=== PATIENT | female | born 1945 | race Caucasian/White ===

== ENCOUNTER 2018-09-15 17:59 | Emergency (ER) | payer MEDICARE, BC ==
--- OUTSIDE RECORDS SUMMARY | 2018-09-15 18:06 | XMS REPORT | Continuity of Care Document ---
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 Jenny Arredondo MD Primary Care Physician Unavailable Payers Date Identification Numbers Payment Provider Subscriber Policy Number: [id number] [employer] [place] Jessica Hahn PayID: [id number] [address] [place] [address] Policy Number: [id number] [facility] [place] Plan Jessica Hahn PayID: [id number] [address] [place] [address] Problems Active Problems Provider Date Essential hypertension William Yusuf MD Onset: 12/22/2016 Pure hypercholesterolemia William Yusuf MD Onset: 12/22/2016 Allergy status to other drugs, William Yusuf MD Onset: 07/08/2017 medicaments and biological substances status Mild intermittent asthma DAMIR Zarco Onset: 03/02/2017 Uncomplicated moderate persistent William Yusuf MD Onset: 12/22/2016 asthma Allergic rhinitis William Yusuf MD Onset: 12/22/2016 Allergic rhinitis due to pollen William Yusuf MD Onset: 12/22/2016 Social History Type Date Description Comments Sex Unknown Home Environment Has a window air conditioner Home Environment There is no basement Home Environment The floors are carpeted Home Environment Uses baseboard heating Smoke-Free Home is smoke-free Pets None Tobacco Use Start: Unknown Patient has never smoked Smoking Status Reviewed: 09/11/18 Patient has never smoked Allergies, Adverse Reactions, Alerts Active Allergies Reaction Severity Comments Date Sulfa Antibiotics 12/22/2016 Penicillin 12/22/2016 12/22/2016 Lisinopril 12/22/2016 Clindamycin 09/09/2017 Benzyl Alcohol 09/11/2018 Medications Active Medications SIG Qnty Indications Ordering Date Provider Qvar Redihaler inhale 1 puff 21.2gm [facility] 40mcg/Act by mouth twice MD Paramjit 9 Aerosol daily, use with spacer, rinse mouth after Flovent HFA inhale 2 puffs 12units [facility]estelita A. 110mcg/Act Aerosol two times daily MD Paramjit 8 Proair HFA 2 puffs every 4 8.500gm J30.1 [facility]estelita A. 108(90Base) mcg/Act as needed MD Paramjit 7 Aerosol Fluticasone Propionate 2 puffs each 16gm [facility]er A. nostril every MD Paramjit 0 50mcg/Act Suspension day Hydrochlorothiazide 1 tab PO daily Jenny Arredondo, 25mg MD 0 Tablets Lovastatin 1 tab PO daily Jenny Arredondo, 40mg Tablets MD 0 Synthroid 1 tab PO daily Jenny Arredondo, 137mcg Tablets MD 0 Vitamin D AprJenny thibodeaux, (Ergocalciferol) MD 0 [id number] Capsules Vitamin C 1 by mouth Unknown 500mg Tablets every day 0 Metronidazole Apply To Unknown 0.75% Cream Affected 0 Area(S) On Face Once Daily Regardless Of Active Rosacea Azithromycin Take 1 Tablet Unknown 500mg Tablets By Mouth 1 Hour 0 Prior To Procedure History Medications Elidel apply to facial 30gm Royaler A. 07/14/2017 - 1% Cream rash twice a day MD Paramjit 09/11/2018 as needed Clindamycin For supervised 200ml Z88.8 [facility] 07/08/2017 - Palmitate HCL oral challenge in MD Paramjit 09/09/2017 the office 75mg/5ML Solution Rec Eucrisa apply to affected 60gm Z88.8 William A. 07/08/2017 - 2% Ointment areas on face MD Paramjit 07/14/2017 twice a day as needed Flovent HFA 2 puffs twice a 12gm William Guerra. - day MD Paramjit 09/09/2017 110mcg/Act Aerosol Fluticasone Jenny Arredondo MD - Propionate 09/11/2018 50mcg/Act Suspension Vital Signs Date Vital Result Comment 09/11/2018 11:14am BP Systolic 130 mmHg BP Diastolic 70 mmHg Height 64 inches 5'4" Weight 206.00 lb BMI (Body Mass Index) 35.4 kg/m2 Heart Rate 82 /min Respiratory Rate 16 /min Body Temperature 97.7 F O2 % BldC Oximetry 91 % 03/13/2018 10:36am BP Systolic 149 mmHg BP Diastolic 77 mmHg Height 64 inches 5'4" Weight 203.00 lb BMI (Body Mass Index) 34.8 kg/m2 Heart Rate 83 /min Respiratory Rate 16 /min Body Temperature 98.0 F O2 % BldC Oximetry 97 % 09/09/2017 10:03am BP Systolic 122 mmHg BP Diastolic 72 mmHg Height 64 inches 5'4" Weight 214.00 lb BMI (Body Mass Index) 36.7 kg/m2 Heart Rate 76 /min Respiratory Rate 18 /min Body Temperature 97.5 F O2 % BldC Oximetry 93 % 07/08/2017 8:17am BP Systolic 115 mmHg BP Diastolic 78 mmHg Height 64 inches 5'4" Weight 215.00 lb BMI (Body Mass Index) 36.9 kg/m2 Heart Rate 90 /min Respiratory Rate 18 /min Body Temperature 97.0 F O2 % BldC Oximetry 97 % 03/02/2017 10:46am BP Systolic 140 mmHg BP Diastolic 88 mmHg Height 64 inches 5'4" Weight 214.00 lb BMI (Body Mass Index) 36.7 kg/m2 Heart Rate 77 /min Respiratory Rate 16 /min Body Temperature 97.4 F O2 % BldC Oximetry 99 % 01/19/2017 8:37am Height 64 inches 5'4" Weight 214.00 lb BMI (Body Mass Index) 36.7 kg/m2 Heart Rate 68 /min Respiratory Rate 14 /min Body Temperature 98.4 F O2 % BldC Oximetry 96 % 12/22/2016 9:36am Height 64 inches 5'4" Weight 216.00 lb BMI (Body Mass Index) 37.1 kg/m2 Heart Rate 77 /min Respiratory Rate 16 /min Body Temperature 96.4 F O2 % BldC Oximetry 96 % Results Test Date Facility Test Result H/L Range Note Order 09/11/2018 [facility] Nitric Oxide <pending> PFT Supplies <pending> PFT With Bronchodilator <pending> Procedures Date Code Description Status 09/11/2018 38750 Nitric Oxide Gas Determination Completed 09/11/2018 02959 Bronchodilation Responsiveness Spirometry Pre/Post Completed Bronchodil Adm 03/13/2018 69306 Nitric Oxide Gas Determination Completed 03/13/2018 59568 Nitric Oxide Gas Determination Completed 03/13/2018 94670 Bronchodilation Responsiveness Spirometry Pre/Post Completed Bronchodil Adm 03/13/2018 16135 Bronchodilation Responsiveness Spirometry Pre/Post Completed Bronchodil Adm 09/09/2017 20645 Nitric Oxide Gas Determination Completed 09/09/2017 73857 Nitric Oxide Gas Determination Completed 09/09/2017 55094 Bronchodilation Responsiveness Spirometry Pre/Post Completed Bronchodil Adm 09/09/2017 26149 Bronchodilation Responsiveness Spirometry Pre/Post Completed Bronchodil Adm 07/13/2017 42240 Ingestion Challenge Test Sequential & Incremental Completed 12/22/2016 45667 Nitric Oxide Gas Determination Completed 12/22/2016 66066 Allergy Tests Percutaneous W/ Allergenic Extracts Completed 12/22/2016 51849 Bronchodilation Responsiveness Spirometry Pre/Post Completed Bronchodil Adm Encounters Type Date Location Provider Dx Diagnosis Office Visit 09/11/2018 ANA Pacheco J45.40 Moderate persistent 10:30a asthma, uncomplicated J30.89 Other allergic rhinitis J30.1 Allergic rhinitis due to pollen Office Visit 03/13/2018 10:00a ANA Pacheco J45.40 Moderate persistent asthma, uncomplicated J30.89 Other allergic rhinitis J30.1 Allergic rhinitis due to pollen Office Visit 09/09/2017 9:30a Adithya Callahan NP J45.40 Moderate persistent asthma, uncomplicated J30.89 Other allergic rhinitis J45.20 Mild intermittent asthma, uncomplicated J30.1 Allergic rhinitis due to pollen Office Visit 07/13/2017 11:15a Adithya Burris Z88.8 Allergy status to jame Yusuf MD drug/meds/biol subst status Office Visit 07/08/2017 8:15a Adithya Burris Z88.8 Allergy status to jame Yusuf MD drug/meds/biol subst status Office Visit 03/02/2017 10:00a Adithya Merida J30.1 Allergic rhinitis due Fenst[place]acher, to pollen RPA-C J30.89 Other allergic rhinitis J45.20 Mild intermittent asthma, uncomplicated Office Visit 01/19/2017 8:30a Dwayne Gutierrez30.1 Allergic rhinitis due to pollen J30.89 Other allergic rhinitis J45.40 Moderate persistent asthma, uncomplicated Office Visit 12/22/2016 9:30a Dwayne Gutierrez30.1 Allergic rhinitis due to pollen J30.89 Other allergic rhinitis J45.40 Moderate persistent asthma, uncomplicated Plan of Treatment Future Appointment(s):12/06/2018 10:00 am - ANA Vizcaino at [place]
--- OUTSIDE RECORDS SUMMARY | 2018-09-15 18:06 | XMS REPORT | Continuity of Care Document ---
:1945 External Reference #:[id number] Author Name NavarroPati zaldivar Care Team Providers Name Role Phone Jenny Arredondo MD Care Team Information Cryptologic Support Specialist Unavailable Jenny Arredondo MD Primary Care Physician Unavailable Payers Date Identification Numbers Payment Provider Subscriber Policy Number: [id number] [place] Jessica Hahn PayID: [id number] [address] [place] [address] Policy Number: [id number] [facility] Plan Jessica Hahn PayID: [id number] [address] [place] [address] Problems Active Problems Provider Date Essential hypertension [...] Qvar Redihaler inhale 1 puff 21.2gm [facility]45.40 [facility] 40[facility]g/Act by mouth twice MD Paramjit 9 Aerosol daily, use with spacer, rinse mouth after Flovent HFA inhale 2 puffs 12units Christopher A. 110mcg/Act Aerosol two times daily MD Paramjit 8 Proair HFA 2 puffs every 4 8.500gm J30.1 [facility] 108(90Base) mcg/Act as needed MD Paramjit 7 Aerosol Fluticasone Propionate 2 puffs each 16gm [facility] nostril every MD Paramjit 0 50mcg/Act Suspension day Hydrochlorothiazide 1 tab PO daily Jenny Arredondo, 25mg MD 0 Tablets Lovastatin 1 tab PO daily Derekder Jenny, 40mg Tablets MD 0 Synthroid 1 tab PO daily Dick Arredondoia, 137mcg Tablets MD 0 Vitamin D Jenny Arredondo, (Ergocalciferol) MD 0 [id number] Capsules Vitamin C 1 by mouth Unknown 500mg Tablets every day 0 Metronidazole Apply To Unknown 0.75% Cream Affected 0 Area(S) On Face Once Daily Regardless Of Active Rosacea Azithromycin Take 1 Tablet Unknown 500mg Tablets By Mouth 1 Hour 0 Prior To Procedure History Medications Elidel apply to facial 30gm Christopher A. 07/14/2017 - 1% Cream rash twice a day MD Paramjit 09/11/2018 as needed Clindamycin For supervised 200ml Z88.8 [facility] 07/08/2017 - Palmitate HCL oral challenge in MD Paramjit 09/09/2017 the office 75mg/5ML Solution Rec Eucrisa apply to affected 60gm Z88.8 [facility] 07/08/2017 - 2% Ointment areas on face MD Paramjit 07/14/2017 twice a day as needed Flovent HFA 2 puffs twice a 12gm Christopher A. - day MD Paramjit 09/09/2017 110mcg/Act Aerosol [...] F O2 % BldC Oximetry 96 % Procedures Date Code Description Status 09/11/2018 32583 Nitric Oxide Gas Determination Completed 09/11/2018 14151 Nitric Oxide Gas Determination Completed 09/11/2018 06206 Bronchodilation Responsiveness Spirometry Pre/Post Completed Bronchodil Adm 09/11/2018 63159 Bronchodilation Responsiveness Spirometry Pre/Post Completed Bronchodil Adm 03/13/2018 22683 Nitric Oxide Gas Determination Completed 03/13/2018 42442 Nitric Oxide Gas Determination Completed 03/13/2018 17549 Bronchodilation Responsiveness Spirometry Pre/Post Completed Bronchodil Adm 03/13/2018 74164 Bronchodilation Responsiveness Spirometry Pre/Post Completed Bronchodil Adm 09/09/2017 10417 Nitric Oxide Gas Determination Completed 09/09/2017 21579 Nitric Oxide Gas Determination Completed 09/09/2017 96615 Bronchodilation Responsiveness Spirometry Pre/Post Completed Bronchodil Adm 09/09/2017 85769 Bronchodilation Responsiveness Spirometry Pre/Post Completed Bronchodil Adm 07/13/2017 96537 Ingestion Challenge Test Sequential & Incremental Completed 12/22/2016 07318 Nitric Oxide Gas Determination Completed 12/22/2016 83255 Allergy Tests Percutaneous W/ Allergenic Extracts Completed 12/22/2016 08576 Bronchodilation Responsiveness Spirometry Pre/Post Completed Bronchodil Adm [...] subst status Office Visit 07/08/2017 8:15a Adithya Taveras88.8 Allergy status to jame Yusuf MD drug/meds/biol subst status Office Visit 03/02/2017 10:00a [place] Shy Merida J30.1 Allergic rhinitis due Fenstermacher, to pollen RPA-C J30.89 Other allergic rhinitis J45.20 Mild intermittent asthma, uncomplicated Office Visit 01/19/2017 8:30a [place] William Yusuf J30.1 Allergic rhinitis due to pollen J30.89 Other allergic rhinitis J45.40 Moderate persistent asthma, uncomplicated Office Visit 12/22/2016 9:30a [place] William Yusuf J30.1 Allergic rhinitis due to pollen J30.89 Other allergic rhinitis J45.40 Moderate persistent asthma, uncomplicated Plan of Treatment Future Appointment(s):12/06/2018 10:00 am - [id number]/11/2018 - ANA VizcainoJ45.40 Moderate persistent asthma, uncomplicatedNew Medication: Qvar Redihaler 40 mcg/Act - inhale 1 puff by mouth twice daily, use with spacer , rinse mouth afterComments:Patient's PFT continues to show small airway asthma and exhaled nitric oxide is slightly elevated at31 ppm. Patient to continue Flovent for prophylaxis of her lungs and Pro Air for breakthrough chestsymptoms. Patient will also add Qvar 40, 1 puff once a day for additional prophylaxis of her lungs. Patient to continue Flonase for prophylaxis of her nose. Patient to follow-up with this office in 3 months for repeat PFT to to check effectiveness of Qvar 40.Patient given samples of Qvar 40 today.Follow up: 3 months, PFT and NIOX jhiflT51.89 Other allergic rvszphreV42.1 Allergic rhinitis due to pollen
[2018-09-15 18:31] VITALS: BP 137/80
--- NOTE | 2018-09-15 18:57 | UC ---
Throat Pain/Nasal [place] HPI - HPI Summary HPI Summary: 72-year-old woman comes in with a chief complaint of 4 days of shortness of breath and sputum production. She did start a new medicine Qvar 4 days ago. Symptoms seem to start the same time. Is also having fevers. Sputum is thick. She stopped taking the Qvar but without improvement. She used her albuterol inhaler but needed to take 3 puffs before she got any relief. No pedal edema no complaint of any chest pain. No history of CHF. - History of Current Complaint Chief Complaint: UCGeneralIllness Stated Complaint: COUGH Time Seen by Provider: 09/15/18 18:27 Hx Last Menstrual Period: post Pain Intensity: 2 - Allergies/Home Medications Allergies/Adverse Reactions: Allergies Allergy/AdvReac Type Severity Reaction Status Date / Time clindamycin Allergy Intermediate Rash Verified 09/15/18 18:34 lisinopril Allergy Intermediate Coughing Verified 09/15/18 18:34 Sulfa (Sulfonamide Allergy Intermediate Hives Verified 09/15/18 18:34 Antibiotics) Penicillins Allergy Fever Verified 09/15/18 18:34 Home Medications: Home Medications Fluticasone Propionate [Flovent Hfa] 1 puff INH BID 09/15/18 [History Confirmed 09/15/18] PMH/Surg Hx/FS Hx/Imm Hx Previously Healthy: Yes Endocrine History: Hypothyroidism, Dyslipidemia Cardiovascular History: Hypertension - Surgical History Surgical History: Yes Surgery Procedure, Year, and Place: LEFT KNEE 2015. bunion surgery - Family History Known Family History: Positive: Non-Contributory - Social History Alcohol Use: None Substance Use Type: None Smoking Status (MU): Former Smoker Review of Systems All Other Systems Reviewed And Are Negative: Yes Constitutional: Positive: Fever, Chills Skin: Positive: Negative Eyes: Positive: Negative ENT: Positive: Sinus Congestion Respiratory: Positive: Shortness Of Breath, Cough, Other - SEE HPI Cardiovascular: Positive: Negative Gastrointestinal: Positive: Negative Motor: Positive: Negative Neurovascular: Positive: Negative Musculoskeletal: Positive: Negative. Negative: Edema Neurological: Positive: Negative Psychological: Positive: Negative Is Patient Immunocompromised?: No Physical Exam Triage Information Reviewed: Yes Appearance: Well-Appearing, No Pain Distress, Well-Nourished Vital Signs: Initial Vital Signs Temp 100.7 F 09/15/18 18:20 Pulse 92 09/15/18 18:20 Resp 17 09/15/18 18:20 BP 137/80 09/15/18 18:20 Pulse Ox 94 09/15/18 18:20 Vital Signs Reviewed: Yes Eye Exam: Normal Eyes: Positive: Conjunctiva Clear ENT: Positive: Pharynx normal, TMs normal Neck: Positive: Supple, Nontender Respiratory: Positive: Lungs clear, Normal breath sounds, No respiratory distress Cardiovascular: Positive: RRR Musculoskeletal Exam: Normal Musculoskeletal: Positive: Strength Intact, ROM Intact Neurological: Positive: Alert, Muscle Tone Normal Psychological Exam: Normal Psychological: Positive: Age Appropriate Behavior Skin Exam: Normal Throat Pain/Nasal Course/Dx - Course Course Of Treatment: DISCUSSED VIRAL VERSES BACTERIAL INFECTION AND THE ROLE OF ANTIBIOTICS. THE PATIENT PREFERS TO BE ON ANTIBIOTICS AT THIS TIME. - Differential Dx/Diagnosis Provider Diagnosis: Bronchitis with bronchospasm Discharge - Sign-Out/Discharge Documenting (check all that apply): Patient Departure All imaging exams completed and their final reports reviewed: No Studies - Discharge Plan Condition: Stable Disposition: HOME Prescriptions: DOXYcycline CAP(*) [DOXYcycline 100MG CAP(*)] 100 mg PO BID #20 cap predniSONE TAB* [Deltasone 20 MG TAB*] 40 mg PO DAILY #10 tab Patient Education Materials: Acute Bronchitis (ED), Bronchospasm (ED) Referrals: Jenny Arredondo MD [Primary Care Provider] - Additional Instructions: FOLLOW UP WITH YOUR DOCTOR IF NOT COMPLETELY IMPROVED. GET RECHECKED SOONER IF YOUR CONDITION WORSENS OR ANY QUESTIONS OR CONCERNS. - Billing Disposition and Condition Condition: STABLE Disposition: Home
== END 2018-09-15 19:13 | disposition home or self-care (01) ==
LOC: UCEAST 17:59
DX: J40 Bronchitis, not specified as acute or chronic (principal); J98.01 Acute bronchospasm; I10 Essential (primary) hypertension; Z88.1 Allergy status to other antibiotic agents; Z88.8 Allergy status to other drugs, medicaments and biological substances; Z88.5 Allergy status to narcotic agent; Z88.0 Allergy status to penicillin; Z87.891 Personal history of nicotine dependence
CPT/HCPCS: 99211; G0463

== ENCOUNTER 2019-02-06 12:34 | Emergency (ER) | payer MEDICARE, BC ==
[2019-02-06 12:47] VITALS: BP 159/88
--- NOTE | 2019-02-06 13:12 | UC ---
Skin Complaint HPI - HPI Summary HPI Summary: 73-year-old female presents with complaints of a tick bite to her right forearm. Patient states she discovered the tick this morning while showering and that it is still attached. Denies fever, chills, rash, flulike symptoms, myalgias, joint pain or swelling. - History of Current Complaint Chief Complaint: UCSkin Time Seen by Provider: 02/06/19 13:10 Stated Complaint: TICK BITE Hx Obtained From: Patient Hx Last Menstrual Period: post Pain Intensity: 0 - Allergy/Home Medications Allergies/Adverse Reactions: Allergies Allergy/AdvReac Type Severity Reaction Status Date / Time clindamycin Allergy Intermediate Rash Verified 02/06/19 12:40 lisinopril Allergy Intermediate Coughing Verified 02/06/19 12:40 Sulfa (Sulfonamide Allergy Intermediate Hives Verified 02/06/19 12:40 Antibiotics) Penicillins Allergy Fever Verified 02/06/19 12:40 PMH/Surg Hx/FS Hx/Imm Hx Endocrine History: Thyroid Disease, Dyslipidemia Cardiovascular History: Hypertension - Surgical History Surgical History: Yes Surgery Procedure, Year, and Place: LEFT KNEE 2015. bunion surgery - Family History Known Family History: Positive: Non-Contributory - Social History Occupation: Retired Lives: With Family Alcohol Use: Weekly Substance Use Type: None Smoking Status (MU): Former Smoker Review of Systems All Other Systems Reviewed And Are Negative: Yes Constitutional: Negative: Fever, Chills Skin: Positive: Other - See HPI Respiratory: Positive: Negative Cardiovascular: Positive: Negative Gastrointestinal: Positive: Negative Genitourinary: Positive: Negative Musculoskeletal: Negative: Arthralgia, Myalgia Neurological: Positive: Negative Is Patient Immunocompromised?: No Physical Exam - Summary Physical Exam Summary: GENERAL APPEARANCE: Well developed, well nourished, alert and cooperative, and appears to be in no acute distress. CARDIAC: Normal S1 and S2. No S3, S4 or murmurs. Rhythm is regular. There is no peripheral edema, cyanosis or pallor. Extremities are warm and well perfused. Capillary refill is less than 2 seconds. Peripheral pulses intact. LUNGS: Clear to auscultation without rales, rhonchi, wheezing or diminished breath sounds. ABDOMEN: Positive bowel sounds. Soft, nondistended, nontender. No guarding or rebound. No masses or hepatosplenomegally. MUSKULOSKELETAL: ROM intact to all extremities. No joint erythema or tenderness. Normal muscular development. Normal gait. SKIN: Skin normal color, texture and turgor. Embedded non-engorged adult deer tick with mild localized erythema noted to the right forearm. Triage Information Reviewed: Yes Vital Signs: Initial Vital Signs Temp 97.8 F 02/06/19 12:42 Pulse 73 02/06/19 12:42 Resp 19 02/06/19 12:42 BP 159/88 02/06/19 12:42 Pulse Ox 99 02/06/19 12:42 Vital Signs Reviewed: Yes Course/Dx - Course Course Of Treatment: 73-year-old female presents with complaints of a tick bite to her right forearm. Patient states she discovered the tick this morning while showering and that it is still attached. Denies fever, chills, rash, flulike symptoms, myalgias, joint pain or swelling. Afebrile. Hypertensive otherwise vital signs stable. Patient had an embedded non-engorged adult deer tick with mild localized erythema noted to the right forearm. This was removed in its entirety using a tick twister. I discussed with the patient that since the tick was not engorged that it was likely attached for less than 24 hours and that there was a very small chance of any transmission of possible Lyme disease and recommended watchful waiting at this time. She is to follow-up with her primary care provider as needed. Anticipatory guidance and warning signs are reviewed with the patient. Verbalizes understanding and agrees with plan of care. - Differential Diagnoses - Skin Complaint Differential Diagnoses: Local Allergic Reaction, Tick Born Illness - Diagnoses Provider Diagnosis: Tick bite of right forearm Discharge ED - Sign-Out/Discharge Documenting (check all that apply): Patient Departure All imaging exams completed and their final reports reviewed: No Studies - Discharge Plan Condition: Stable Disposition: HOME Patient Education Materials: Tick Bite (ED) Referrals: Jenny Arredondo MD [Primary Care Provider] - Additional Instructions: Ticks transmit infection only after they have attached and then taken a blood meal from their new host. A tick that has not attached cannot not pass any infection. Since the deer tick that transmits Lyme disease typically feeds for more than 36 hours before transmitting the organisim that causes Lyme disease, the risk of acquiring Lyme disease from an tick bite is extremely small, even in an area where the disease is common. There is no benefit of blood testing for Lyme disease at the time of the tick bite because even people who become infected will not have a positive blood test until approximately two to six weeks after the tick bite. To try to avoid getting bitten by a tick, you can: * Wear shoes, long-sleeved shirts, and long pants when you go outside. Keep ticks away from your skin by tucking your pants into your socks. * Wear light colors so you can spot any ticks that get on your clothes. * Wear bug spray or cream that contains DEET. (Do not use DEET on babies younger than 2 months.) On your clothes and gear, you can use bug repellents that have a chemical called "permethrin." * Shower within 2 hours of being outdoors if you think you have been in an area where there are ticks. * Put dry clothes briefly (for about 4 minutes) in a dryer after being outdoors. * Check your clothes and body for ticks after being outdoors. Be sure to check your scalp, waist, armpits, groin, and backs of your knees. Check your children , too. After a tick bite, you will need to monitor for signs of Lyme disease over the nexter several weeks even if you have been given antibiotics to prevent the infection. Seek immediate medical attention if you develop a bullseye rash, fever, flu-like symptoms including headache, stiff neck, fatigue, muscle aches, joint pain or swelling. - Billing Disposition and Condition Condition: STABLE Disposition: Home
== END 2019-02-06 13:20 | disposition home or self-care (01) ==
LOC: UCEAST 12:34
DX: S50.861A Insect bite (nonvenomous) of right forearm, initial encounter (principal); I10 Essential (primary) hypertension; Z87.891 Personal history of nicotine dependence; Z88.1 Allergy status to other antibiotic agents; Z88.8 Allergy status to other drugs, medicaments and biological substances; Z88.2 Allergy status to sulfonamides; Z88.0 Allergy status to penicillin; W57.XXXA Bitten or stung by nonvenomous insect and other nonvenomous arthropods, initial encounter; Y92.9 Unspecified place or not applicable
CPT/HCPCS: 99211; G0463